=== PATIENT | female | born 1995 | race Caucasian/White ===

== ENCOUNTER 2018-01-13 09:42 | Emergency (ER) | payer OTHER ==
[~2018-01-13] VITALS: Ht 154.9 cm; Wt 47.6 kg
[2018-01-13 09:54] VITALS: BP 116/73
--- NOTE | 2018-01-13 10:11 | Emergency Room Report ---
History of Present Illness General Chief Complaint: Earache Source: Patient Present Illness HPI 22-year-old female, no significant past medical history, presenting with right sided dental pain and right-sided ear pain for 2 days. Patient states that it started gradually. No fever no chills has been eating and drinking normally. States that she has not seen a dentist for many years. Denies any headache nausea vomiting fever or chills Allergies: Coded Allergies: No Known Allergies (Unverified , 01/13/18) Patient History Past Medical History: see triage record Past Surgical History: none Pertinent Family History: none Last Menstrual Period: 12/30/17 Reviewed Nursing Documentation: PMH: Agreed, PSxH: Agreed Nursing Documentation-PMH Past Medical History: No Stated History Review of Systems All Other Systems: negative except mentioned in HPI Physical Exam Vital Signs Date Time Temp Pulse Resp B/P (MAP) Pulse Ox O2 Delivery O2 Flow Rate FiO2 01/13/18 09:46 98.1 73 18 117/76 96 Room Air 98.1 Sp02 EP Interpretation: reviewed, normal General Appearance: normal inspection, well appearing, no apparent distress, alert, GCS 15, non-toxic Head: normocephalic, atraumatic Eyes: bilateral eye normal inspection, bilateral eye PERRL, bilateral eye EOMI ENT: other - Bilateral TM normal, no effusion, no erythema. No tenderness of right-sided ear, on pulling, no erythema. Mild amount of cerumen in ear canal. No signs of cellulitis. Right lower molar, focal tenderness, no signs of abscess or cellulitis Neck: normal inspection, full range of motion, supple Respiratory: normal inspection, lungs clear, normal breath sounds, no respiratory distress, no retraction, no wheezing, speaking full sentences, chest symmetrical Cardiovascular #1: normal inspection, regular rate, rhythm, normal capillary refill Cardiovascular #2: 2+ radial (R), 2+ radial (L) Gastrointestinal: normal inspection Musculoskeletal: normal inspection, back normal, normal range of motion, non- tender Neurologic: normal inspection, alert, oriented x3, responsive, motor strength/ tone normal, sensory intact, normal gait, speech normal Psychiatric: normal inspection, judgement/insight normal, memory normal Skin: normal inspection, normal color, no rash, warm/dry, well hydrated, normal turgor Medical Decision Making Diagnostic Impression: Primary Impression: Pain, dental ER Course 22-year-old female with dental pain and ear pain DDX: There are no signs of dental abscess, no signs of otitis media or otitis externa Possible dental cavities Plan: Motrin ER course: Patient has remained stable during ED stay. Disposition: Patient is to be discharged to home. Patient is instructed to follow up with dentist within one week Strict return precautions discussed with patient such as fever, chills, worsening/severe pain, inability to eat or drink Please note that this Emergency Department Report was dictated using [employer] machine operator technology software, occasionally this can lead to erroneous entry secondary to interpretation by the dictation equipment Last Vital Signs Date Time Temp Pulse Resp B/P (MAP) Pulse Ox O2 Delivery O2 Flow Rate FiO2 01/13/18 09:54 98.0 68 18 116/73 99 Room Air 98.0 Disposition: HOME, SELF-CARE Condition: Improved Scripts No Active Prescriptions or Reported Meds Patient Instructions: Dental Pain, [id number] Additional Instructions: Please follow up with a dentist in 1 week Prakash Cuevas M.D. Jan 13, 2018 10:11
[2018-01-13 10:13] VITALS: BP 116/73
== END 2018-01-13 10:13 | disposition home or self-care (01) ==
LOC: EMR 09:54
DX: K08.89 Other specified disorders of teeth and supporting structures (principal); H92.01 Otalgia, right ear
CPT/HCPCS: 99283